=== PATIENT | male | born 1950 | race African-American/Black ===

== ENCOUNTER 2017-01-12 16:46 | Inpatient (IN) | payer MEDICARE, MEDICAID ==
[~2017-01-12] VITALS: Ht 175.3 cm; Wt 95.8 kg
[2017-01-12] MEDS ORDERED: AMLO2.5T45 PO (17:55)
[2017-01-12] MEDS ORDERED: LISI2.5T47 PO (17:55)
[2017-01-12 20:39] LABS: CLARITY URINE CLEAR (CLEAR); COLOR URINE YELLOW (YELLOW); GLUCOSE URINE NEGATIVE (NEGATIVE); KETONES URINE NEGATIVE (NEGATIVE); LEUKOCYTE ESTERASE URINE NEGATIVE (NEGATIVE); NITRITE URINE NEGATIVE (NEGATIVE); OCCULT BLOOD URINE 2+ (NEGATIVE); PROTEIN URINE NEGATIVE (NEGATIVE); SPECIFIC GRAVITY URINE 1.025 (1.005-1.030)
[2017-01-12 20:42] LABS: BASOPHILS % 0.5 % (0.0-2.0); EOSINOPHILS % 2.9 % (0.0-5.0); HEMATOCRIT. 33.6 % (42.0-52.0); HEMOGLOBIN. 11.3 g/dL (14.0-18.0); LYMPHOCYTES % 29.9 % (20.0-50.0); MEAN CORPUSCULAR HEMOGLOBIN 31.1 pg (28.0-32.0); MEAN CORPUSCULAR HGB CONC 33.6 g/dL (31.0-37.0); MEAN CORPUSCULAR VOLUME 92.6 fL (80.0-94.0); MEAN PLATELET VOLUME 7.3 fl (7.4-10.4); MONOCYTES % 12.1 % (2.0-8.0); NEUTROPHILS % 54.6 % (40.0-76.0); PLATELET 258 x1000/uL (130-400); RED BLOOD CELL COUNT 3.63 mill/uL (4.7-6.1); WHITE BLOOD COUNT 6.1 x1000/uL (4.5-11.0)
[2017-01-12 20:52] LABS: AMMONIA 40 uMol/L (<32)
[2017-01-12 20:55] LABS: *AMPHETAMINES SCREEN URINE NEGATIVE (NEGATIVE); *BARBITURATES SCREEN URINE NEGATIVE (NEGATIVE); *BENZODIAZEPINES SCREEN URINE NEGATIVE (NEGATIVE); *COCAINE SCREEN URINE NEGATIVE (NEGATIVE); CANNABINOID URINE SCREEN NEGATIVE (NEGATIVE); ECSTASY MDMA SCREEN URINE NEGATIVE (NEGATIVE); METHADONE URINE SCREEN NEGATIVE (NEGATIVE); OPIATES URINE SCREEN NEGATIVE (NEGATIVE); PHENCYCLIDINE URINE SCREEN NEGATIVE (NEGATIVE)
[2017-01-12 20:56] LABS: ALANINE AMINOTRANSFERASE 54 IU/L (13-61); ALBUMIN 3.8 g/dL (3.4-5.0); ANION GAP 13; CALCIUM 8.9 mg/dL (8.5-10.1); CARBON DIOXIDE 28 mEq/L (21-32); CHLORIDE 106 mEq/L (98-107); ETHANOL BLOOD < 10 mg/dL; INDEX HEMOLYSI 1 (1-3); INDEX ICTERIC 1 (1-4); INDEX LIPEMIC 1 (1-3); NT PRO B-TYPE NATRIURETIC PEP 79 pg/mL (5-125); TROPONIN I < 0.02 ng/mL (0.00-0.04); UREA NITROGEN BLOOD 22 mg/dL (7-21); eGFR 51 mL/min (>60)
[2017-01-12 20:59] LABS: BACTERIA URINE TRACE; RBC URINE 25-50 /hpf (0-2); SQUAMOUS EPITHELIAL CELL URINE RARE /lpf (RARE/1+); WBC URINE 0-2 /hpf (0-2)
[2017-01-12 21:03] LABS: THYROID STIMULATING HORMONE 0.67 uIU/mL (0.36-3.74)
[2017-01-12 21:05] LABS: CREATINE KINASE 1688 IU/L (39-308)
[2017-01-12] MEDS ORDERED: GUAIFENESIN 200MG/10ML SUGAR FREE UDC PO PRN (23:30)
[2017-01-12] MEDS ORDERED: ONDANSETRON HCL 4MG/2ML VIAL IV PRN (23:30)
[2017-01-12] MEDS ORDERED: MAGNESIUM/ALUMINUM HYDROXIDE/SIMETHICONE 30ML UDC PO PRN (23:30)
[2017-01-12] MEDS ORDERED: TRAMADOL 50MG TABLET PO PRN (23:30)
[2017-01-12] MEDS ORDERED: MORPHINE SULFATE 2 MG/ML CPJ (NOT FOR IM USE) IV PRN (23:30)
[2017-01-12] MEDS ORDERED: DOCUSATE SODIUM 100MG CAPSULE PO PRN (23:30)
[2017-01-12] MEDS ORDERED: ZOLPIDEM TARTRATE 5MG TABLET PO PRN (23:30)
[2017-01-12] MEDS ORDERED: IPRATROPIUM/ALBUTEROL 0.5-3(2.5)MG/3ML NEB INH PRN (23:30)
[2017-01-12] MEDS ORDERED: CLONIDINE 0.1MG TABLET PO PRN (23:30)
[2017-01-12] MEDS ORDERED: ASPIRIN 325MG EC TABLET PO ONE (23:30)
[2017-01-12] MEDS ORDERED: LORAZEPAM 2MG/ML CPJ IV PRN (23:30)
[2017-01-12] MEDS ORDERED: ACETAMINOPHEN 325MG TABLET PO PRN (23:30)
[2017-01-12] MEDS ORDERED: NITROGLYCERIN 0.4MG TABLET SL SL PRN (23:30)
[2017-01-12] MEDS ORDERED: DIPHENHYDRAMINE 50MG/ML VIAL IV PRN (23:30)
[2017-01-12] MEDS ORDERED: NA PHOS,M-B/NA PHOS,DI-BA ENEMA 118ML PR PRN (23:30)
[2017-01-13 02:05] VITALS: BP 125/79
[2017-01-13] MEDS ORDERED: NAPR-681 PO (03:20)
[2017-01-13] MEDS ORDERED: AMLO10TA80 PO (03:21)
[2017-01-13] MEDS ORDERED: LISI10TA5 PO (03:21)
[2017-01-13] MEDS ORDERED: ATOR10TA69 PO (03:22)
[2017-01-13] MEDS ORDERED: TERB250T11 PO (03:37)
[2017-01-13 04:00] VITALS: BP 123/84
[2017-01-13] MEDS: SODIUM CHLORIDE 0.9% 1,000 ML IV SCH ×2 (06:25→16:26)
[2017-01-13 06:57] LABS: CREATINE KINASE MB FRACTION 14.9 ng/mL (0.5-3.6); INDEX HEMOLYSI 1 (1-3)
[2017-01-13 07:12] LABS: CREATINE KINASE 1330 IU/L (39-308); TROPONIN I < 0.02 ng/mL (0.00-0.04)
[2017-01-13 08:00] VITALS: BP 126/76
[2017-01-13] MEDS: ASPIRIN 325MG EC TABLET PO SCH (09:47)
[2017-01-13] MEDS: ZINC SULFATE 220 MG ( 50 ) CAPSULE PO SCH (09:47)
[2017-01-13] MEDS: METOPROLOL TARTRATE 25MG TABLET PO SCH ×2 (09:48→20:23)
[2017-01-13] MEDS: ENOXAPARIN 40MG/0.4ML SYR SUBCUT SCH (09:49)
[2017-01-13] MEDS: PANTOPRAZOLE SODIUM 40 MG/VIAL IV SCH (09:58)
[2017-01-13 12:00] VITALS: BP 107/77
[2017-01-13 16:00] VITALS: BP 110/74
[2017-01-13 16:31] LABS: CREATINE KINASE MB FRACTION 12.2 ng/mL (0.5-3.6); INDEX HEMOLYSI 1 (1-3); INDEX ICTERIC 1 (1-4); INDEX LIPEMIC 1 (1-3); IRON 88 ug/dL (50-175); TOTAL IRON BINDING CAPACITY 265 ug/dL (250-450); TROPONIN I < 0.02 ng/mL (0.00-0.04)
[2017-01-13 16:35] LABS: CREATINE KINASE 1035 IU/L (39-308)
[2017-01-13 16:55] LABS: FOLIC ACID (FOLATE) SERUM 15.5 ng/mL (>5.38)
[2017-01-13 20:00] VITALS: BP 120/72
[2017-01-14] VITALS: BP 127/71
[2017-01-14 04:00] VITALS: BP 135/87
[2017-01-14] MEDS: SODIUM CHLORIDE 0.9% 1,000 ML IV SCH ×2 (06:24→21:39)
[2017-01-14 08:00] VITALS: BP 118/72
[2017-01-14] MEDS: METOPROLOL TARTRATE 25MG TABLET PO SCH ×2 (09:00→21:38)
[2017-01-14] MEDS: ZINC SULFATE 220 MG ( 50 ) CAPSULE PO SCH (09:15)
[2017-01-14] MEDS: ENOXAPARIN 40MG/0.4ML SYR SUBCUT SCH (09:15)
[2017-01-14] MEDS: ASPIRIN 325MG EC TABLET PO SCH (09:15)
[2017-01-14] MEDS: PANTOPRAZOLE SODIUM 40 MG/VIAL IV SCH (09:15)
[2017-01-14] MEDS ORDERED: MORPHINE SULFATE 2 MG/ML CPJ (NOT FOR IM USE) IV PRN (09:20)
[2017-01-14 12:00] VITALS: BP 110/65
[2017-01-14 12:38] LABS: T3 FREE 2.06 pg/ml (2.18-3.98); T4 FREE 0.88 ng/dL (0.76-1.46)
[2017-01-14 16:00] VITALS: BP 148/88
[2017-01-14 20:00] VITALS: BP 116/73
[2017-01-15] VITALS: BP 111/68
[2017-01-15 04:00] VITALS: BP 111/70
[2017-01-15 08:00] VITALS: BP 145/93
[2017-01-15] MEDS: SODIUM CHLORIDE 0.9% 1,000 ML IV SCH (08:26)
[2017-01-15 08:45] LABS: BASOPHILS % 0.6 % (0.0-2.0); EOSINOPHILS % 3.6 % (0.0-5.0); HEMATOCRIT. 32.8 % (42.0-52.0); HEMOGLOBIN. 10.9 g/dL (14.0-18.0); LYMPHOCYTES % 37.3 % (20.0-50.0); MEAN CORPUSCULAR HEMOGLOBIN 30.9 pg (28.0-32.0); MEAN CORPUSCULAR HGB CONC 33.1 g/dL (31.0-37.0); MEAN CORPUSCULAR VOLUME 93.4 fL (80.0-94.0); MEAN PLATELET VOLUME 7.6 fl (7.4-10.4); MONOCYTES % 10.6 % (2.0-8.0); NEUTROPHILS % 47.9 % (40.0-76.0); PLATELET 221 x1000/uL (130-400); RED BLOOD CELL COUNT 3.52 mill/uL (4.7-6.1); RED CELL DISTRIBUTION WIDTH 13.7 % (11.6-14.6); WHITE BLOOD COUNT 5.1 x1000/uL (4.5-11.0)
[2017-01-15] MEDS ORDERED: FAMOTIDINE 20MG TABLET PO SCH (09:00)
[2017-01-15] MEDS ORDERED: CLOPIDOGREL 75MG TABLET PO SCH (09:00)
[2017-01-15 09:12] LABS: ALANINE AMINOTRANSFERASE 35 IU/L (13-61); ANION GAP 11; CALCIUM 7.8 mg/dL (8.5-10.1); CARBON DIOXIDE 28 mEq/L (21-32); CHLORIDE 108 mEq/L (98-107); CREATINE KINASE 575 IU/L (39-308); INDEX HEMOLYSI 1 (1-3); INDEX ICTERIC 1 (1-4); INDEX LIPEMIC 1 (1-3); UREA NITROGEN BLOOD 12 mg/dL (7-21); eGFR > 60 mL/min (>60)
[2017-01-15] MEDS: ZINC SULFATE 220 MG ( 50 ) CAPSULE PO SCH (09:26)
[2017-01-15] MEDS: METOPROLOL TARTRATE 25MG TABLET PO SCH (09:27)
[2017-01-15] MEDS: ENOXAPARIN 40MG/0.4ML SYR SUBCUT SCH (09:28)
[2017-01-15 12:00] VITALS: BP 132/90
[2017-01-15 13:53] VITALS: BP 132/90
== END 2017-01-15 14:45 | disposition home or self-care (01) | DRG 683 ==
LOC: ER 17:51 → SUPCPDRO 23:23 → 6WST 23:25
PROVIDERS: ADMIT Internal Medicine; ATTEND Internal Medicine
DX: N17.0 Acute kidney failure with tubular necrosis (principal); M62.82 Rhabdomyolysis; E44.0 Moderate protein-calorie malnutrition; I69.354 Hemiplegia and hemiparesis following cerebral infarction affecting left non-dominant side; I10 Essential (primary) hypertension; D63.8 Anemia in other chronic diseases classified elsewhere; E78.00 Pure hypercholesterolemia, unspecified; R29.810 Facial weakness; R47.81 Slurred speech; M54.9 Dorsalgia, unspecified; R26.81 Unsteadiness on feet; Z79.899 Other long term (current) drug therapy; Z68.31 Body mass index [BMI] 31.0-31.9, adult
CPT/HCPCS: 36415; 70450; 70544; 70551; 71010; 80053; 80061; 80305; 81001; 82140; 82550; 82553; 82607; 82746; 83036; 83540; 83550; 83880; 84439; 84443; 84481; 84484; 85025; 92523; 93005; 93306; 93880; 93970; 97110; 97112; 97116; 97162; 97166; 99285; C9113; G0482; J1650; J7030

== ENCOUNTER 2017-06-08 18:13 | Inpatient (IN) | payer MEDICARE, MEDICAID ==
[~2017-06-08] VITALS: Ht 175.3 cm; Wt 85.7 kg
[~2017-06-08 18:13] MED LIST: AMLO10TA80 PO; ATOR10TA69 PO; LISI10TA5 PO; NAPR-681 PO; TERB250T11 PO
[2017-06-08 19:05] LABS: BASOPHILS % 0.4 % (0.0-2.0); EOSINOPHILS % 1.3 % (0.0-5.0); HEMOGLOBIN. 10.9 g/dL (14.0-18.0); LYMPHOCYTES % 28.6 % (20.0-50.0); MEAN CORPUSCULAR HEMOGLOBIN 30.5 pg (28.0-32.0); MEAN CORPUSCULAR VOLUME 89.6 fL (80.0-94.0); MONOCYTES % 10.6 % (2.0-8.0); NEUTROPHILS % 59.1 % (40.0-76.0); PLATELET 300 x1000/uL (130-400); RED BLOOD CELL COUNT 3.57 mill/uL (4.7-6.1); RED CELL DISTRIBUTION WIDTH 13.4 % (11.6-14.6)
[2017-06-08 19:12] LABS: PROTHROMBIN TIME 10.7 sec (9.4-11.6)
[2017-06-08 19:21] LABS: CARBON DIOXIDE 25 mEq/L (21-32); CHLORIDE 105 mEq/L (98-107); TROPONIN I < 0.02 ng/mL (0.00-0.04)
[2017-06-08] MEDS ORDERED: ASPIRIN 325MG EC TABLET PO ONE (19:45)
[2017-06-08] MEDS ORDERED: ONDANSETRON HCL 4MG/2ML VIAL IV PRN (21:00)
[2017-06-08] MEDS ORDERED: MAGNESIUM/ALUMINUM HYDROXIDE/SIMETHICONE 30ML UDC PO PRN (21:00)
[2017-06-08] MEDS ORDERED: ACETAMINOPHEN 325MG TABLET PO PRN (21:00)
[2017-06-08] MEDS ORDERED: CLONIDINE 0.1MG TABLET PO PRN (21:00)
[2017-06-08] MEDS ORDERED: IPRATROPIUM/ALBUTEROL 0.5-3(2.5)MG/3ML NEB INH PRN (21:00)
[2017-06-08] MEDS ORDERED: DOCUSATE SODIUM 100MG CAPSULE PO PRN (21:00)
[2017-06-08 22:50] LABS: CARBON DIOXIDE 29 mEq/L (21-32); CHLORIDE 104 mEq/L (98-107)
[2017-06-08 22:52] LABS: CREATINE KINASE 714 IU/L (39-308); CREATINE KINASE MB FRACTION 8.4 ng/mL (0.5-3.6); TROPONIN I < 0.02 ng/mL (0.00-0.04)
[2017-06-08 23:00] VITALS: BP 139/76
[2017-06-09] VITALS: BP 139/76
[2017-06-09] MEDS ORDERED: ENOXAPARIN 40MG/0.4ML SYR SUBCUT SCH (01:00)
[2017-06-09 03:27] LABS: *AMPHETAMINES SCREEN URINE NEGATIVE (NEGATIVE); *BARBITURATES SCREEN URINE NEGATIVE (NEGATIVE); *BENZODIAZEPINES SCREEN URINE NEGATIVE (NEGATIVE); *COCAINE SCREEN URINE NEGATIVE (NEGATIVE); CANNABINOID URINE SCREEN NEGATIVE (NEGATIVE); METHADONE URINE SCREEN NEGATIVE (NEGATIVE); OPIATES URINE SCREEN NEGATIVE (NEGATIVE); PHENCYCLIDINE URINE SCREEN NEGATIVE (NEGATIVE)
[2017-06-09 04:00] VITALS: BP 116/72
[2017-06-09 06:45] LABS: BASOPHILS % 0.6 % (0.0-2.0); EOSINOPHILS % 2.7 % (0.0-5.0); HEMATOCRIT. 31.9 % (42.0-52.0); HEMOGLOBIN. 10.9 g/dL (14.0-18.0); LYMPHOCYTES % 39.5 % (20.0-50.0); MEAN CORPUSCULAR HEMOGLOBIN 30.6 pg (28.0-32.0); MEAN CORPUSCULAR VOLUME 89.6 fL (80.0-94.0); MEAN PLATELET VOLUME 7.7 fl (7.4-10.4); NEUTROPHILS % 47.2 % (40.0-76.0); PLATELET 296 x1000/uL (130-400); RED BLOOD CELL COUNT 3.56 mill/uL (4.7-6.1); RED CELL DISTRIBUTION WIDTH 13.3 % (11.6-14.6)
[2017-06-09 07:36] LABS: LDL CHOLESTEROL 61 mg/dL (5-100)
[2017-06-09 07:43] LABS: CREATINE KINASE 744 IU/L (39-308); HDL CHOLESTEROL 48 mg/dL (40-59); TROPONIN I < 0.02 ng/mL (0.00-0.04)
[2017-06-09 08:08] VITALS: BP 126/88
[2017-06-09 08:36] LABS: ETHANOL BLOOD < 10 mg/dL; T4 FREE 1.24 ng/dL (0.76-1.46)
[2017-06-09 09:00] LABS: FOLIC ACID (FOLATE) SERUM 13.2 ng/mL (>5.38)
[2017-06-09] MEDS: CLOPIDOGREL 75MG TABLET PO SCH (09:00)
[2017-06-09] MEDS: AMLODIPINE 10MG TABLET PO SCH (09:00)
[2017-06-09] MEDS: LISINOPRIL 10MG TABLET PO SCH (09:00)
[2017-06-09] MEDS: ENOXAPARIN 40MG/0.4ML SYR SUBCUT SCH (09:01)
[2017-06-09 12:05] VITALS: BP 126/60
[2017-06-09] MEDS ORDERED: ASPI-1159 PO (13:27)
[2017-06-09 16:12] VITALS: BP 107/61
[2017-06-09 20:00] VITALS: BP 114/68
[2017-06-09] MEDS: ATORVASTATIN CALCIUM 10MG TABLET PO SCH (21:41)
[2017-06-10] VITALS: BP 130/68
[2017-06-10 04:00] VITALS: BP 124/79
[2017-06-10 08:00] VITALS: BP 137/80
[2017-06-10] MEDS: LISINOPRIL 10MG TABLET PO SCH (09:14)
[2017-06-10] MEDS: CLOPIDOGREL 75MG TABLET PO SCH (09:14)
[2017-06-10] MEDS: AMLODIPINE 10MG TABLET PO SCH (09:14)
[2017-06-10] MEDS: ENOXAPARIN 40MG/0.4ML SYR SUBCUT SCH (09:15)
[2017-06-10 12:00] VITALS: BP 110/55
[2017-06-10 16:00] VITALS: BP 119/75
[2017-06-10 20:00] VITALS: BP 139/79
[2017-06-10] MEDS: ATORVASTATIN CALCIUM 10MG TABLET PO SCH (20:37)
[2017-06-11] VITALS: BP 126/82
[2017-06-11 04:00] VITALS: BP 129/81
[2017-06-11 08:00] VITALS: BP 138/96
[2017-06-11] MEDS: CLOPIDOGREL 75MG TABLET PO SCH (08:48)
[2017-06-11] MEDS: LISINOPRIL 10MG TABLET PO SCH (08:48)
[2017-06-11] MEDS: AMLODIPINE 10MG TABLET PO SCH (08:49)
[2017-06-11] MEDS: ENOXAPARIN 40MG/0.4ML SYR SUBCUT SCH (09:38)
[2017-06-11 12:00] VITALS: BP 119/62
[2017-06-11 16:00] VITALS: BP 105/79
[2017-06-11 16:55] VITALS: BP 105/79
== END 2017-06-11 17:05 | DRG 65 ==
LOC: EDBEDREQ 20:08 → ER 21:14 → 7WST 21:15 → ENRESERV 21:56 → 7WST 06-11 06:58
PROVIDERS: ADMIT Internal Medicine; ATTEND Internal Medicine
DX: I63.9 Cerebral infarction, unspecified (principal); M62.82 Rhabdomyolysis; G91.2 (Idiopathic) normal pressure hydrocephalus; G93.89 Other specified disorders of brain; G81.94 Hemiplegia, unspecified affecting left nondominant side; I10 Essential (primary) hypertension; D64.9 Anemia, unspecified; B35.1 Tinea unguium; E78.00 Pure hypercholesterolemia, unspecified; L60.0 Ingrowing nail; L60.3 Nail dystrophy; Z79.82 Long term (current) use of aspirin; Z79.899 Other long term (current) drug therapy; Z91.19 Patient's noncompliance with other medical treatment and regimen
CPT/HCPCS: 36415; 70450; 70544; 70553; 71010; 80048; 80053; 80061; 80305; 82550; 82553; 82607; 82746; 82962; 83036; 83880; 84439; 84443; 84481; 84484; 85025; 85610; 92523; 92610; 93005; 93306; 93880; 97112; 97116; 97162; 97166; 99285; G0482; J1650

== ENCOUNTER 2017-06-11 17:13 | Inpatient (IN) | payer MEDICARE, MEDICAID ==
[~2017-06-11] VITALS: Ht 175.3 cm; Wt 82.6 kg
[~2017-06-11 17:13] MED LIST changes: +ASPI-1159 PO
[2017-06-11 20:00] VITALS: BP 128/87
[2017-06-11] MEDS ORDERED: MAGNESIUM/ALUMINUM HYDROXIDE/SIMETHICONE 30ML UDC PO PRN (21:15)
[2017-06-11] MEDS ORDERED: IPRATROPIUM/ALBUTEROL 0.5-3(2.5)MG/3ML NEB HHN PRN (21:15)
[2017-06-11] MEDS ORDERED: ACETAMINOPHEN 325MG TABLET PO PRN (21:15)
[2017-06-11] MEDS ORDERED: DOCUSATE SODIUM 100MG CAPSULE PO PRN (21:15)
[2017-06-11] MEDS ORDERED: CLONIDINE 0.1MG TABLET PO PRN (21:15)
[2017-06-11] MEDS ORDERED: ONDANSETRON HCL 4MG TABLET PO PRN (21:15)
[2017-06-11] MEDS: ATORVASTATIN CALCIUM 10MG TABLET PO SCH (21:52)
[2017-06-11] MEDS ORDERED: ATORVASTATIN CALCIUM 10MG TABLET PO SCH (22:00)
[2017-06-11 22:34] VITALS: BP 128/87
[2017-06-12 06:12] LABS: CARBON DIOXIDE 27 mEq/L (21-32); CHLORIDE 105 mEq/L (98-107); CREATINE KINASE 350 IU/L (39-308)
[2017-06-12 06:16] LABS: BASOPHILS % 0.3 % (0.0-2.0); EOSINOPHILS % 2.7 % (0.0-5.0); HEMATOCRIT. 32.3 % (42.0-52.0); HEMOGLOBIN. 10.9 g/dL (14.0-18.0); LYMPHOCYTES % 38.8 % (20.0-50.0); MEAN CORPUSCULAR HEMOGLOBIN 30.3 pg (28.0-32.0); MEAN CORPUSCULAR VOLUME 89.9 fL (80.0-94.0); MEAN PLATELET VOLUME 7.4 fl (7.4-10.4); MONOCYTES % 11.2 % (2.0-8.0); PLATELET 299 x1000/uL (130-400); RED CELL DISTRIBUTION WIDTH 13.2 % (11.6-14.6)
[2017-06-12 08:00] VITALS: BP 123/72
[2017-06-12] MEDS: CLOPIDOGREL 75MG TABLET PO SCH (08:50)
[2017-06-12] MEDS ORDERED: ENOXAPARIN 40MG/0.4ML SYR SUBCUT SCH (09:00)
[2017-06-12] MEDS: AMLODIPINE 10MG TABLET PO SCH (09:52)
[2017-06-12] MEDS: LISINOPRIL 10MG TABLET PO SCH (09:53)
[2017-06-12 20:00] VITALS: BP 129/65
[2017-06-12] MEDS: ATORVASTATIN CALCIUM 10MG TABLET PO SCH (20:39)
[2017-06-12] MEDS: ENOXAPARIN 40MG/0.4ML SYR SUBCUT SCH (20:40)
[2017-06-13 08:00] VITALS: BP 125/80
[2017-06-13] MEDS: AMLODIPINE 10MG TABLET PO SCH (08:19)
[2017-06-13] MEDS: LISINOPRIL 10MG TABLET PO SCH (08:19)
[2017-06-13] MEDS: ENOXAPARIN 40MG/0.4ML SYR SUBCUT SCH (08:19)
[2017-06-13] MEDS: CLOPIDOGREL 75MG TABLET PO SCH (08:20)
[2017-06-13 20:00] VITALS: BP 119/58
[2017-06-13] MEDS: ATORVASTATIN CALCIUM 10MG TABLET PO SCH (21:06)
[2017-06-14 08:00] VITALS: BP 125/86
[2017-06-14] MEDS: AMLODIPINE 10MG TABLET PO SCH (08:09)
[2017-06-14] MEDS: LISINOPRIL 10MG TABLET PO SCH (08:10)
[2017-06-14] MEDS: ENOXAPARIN 40MG/0.4ML SYR SUBCUT SCH (08:10)
[2017-06-14] MEDS ORDERED: CLOPIDOGREL 75MG TABLET PO SCH (09:00)
[2017-06-14 20:00] VITALS: BP 118/72
[2017-06-14] MEDS: ATORVASTATIN CALCIUM 10MG TABLET PO SCH (20:39)
[2017-06-15 07:10] VITALS: BP 137/93
[2017-06-15] MEDS: LISINOPRIL 10MG TABLET PO SCH (08:23)
[2017-06-15] MEDS: AMLODIPINE 10MG TABLET PO SCH (08:24)
[2017-06-15] MEDS: ENOXAPARIN 40MG/0.4ML SYR SUBCUT SCH (08:24)
[2017-06-15 20:55] VITALS: BP 119/75
[2017-06-15] MEDS: ATORVASTATIN CALCIUM 10MG TABLET PO SCH (22:11)
[2017-06-16 08:00] VITALS: BP 132/83
[2017-06-16] MEDS: AMLODIPINE 10MG TABLET PO SCH (08:01)
[2017-06-16] MEDS: LISINOPRIL 10MG TABLET PO SCH (08:01)
[2017-06-16] MEDS: ENOXAPARIN 40MG/0.4ML SYR SUBCUT SCH (08:04)
[2017-06-16] MEDS: CLOPIDOGREL 75MG TABLET PO SCH (12:23)
[2017-06-16 20:00] VITALS: BP 116/66
[2017-06-16] MEDS: ATORVASTATIN CALCIUM 10MG TABLET PO SCH (21:55)
[2017-06-17 08:00] VITALS: BP 125/77
[2017-06-17] MEDS: ENOXAPARIN 40MG/0.4ML SYR SUBCUT SCH (09:48)
[2017-06-17] MEDS: CLOPIDOGREL 75MG TABLET PO SCH (09:48)
[2017-06-17] MEDS: AMLODIPINE 10MG TABLET PO SCH (09:49)
[2017-06-17] MEDS: LISINOPRIL 10MG TABLET PO SCH (09:49)
[2017-06-17] MEDS ORDERED: ATOR10TA PO (12:46)
[2017-06-17] MEDS ORDERED: CLOP75TA16 PO (12:46)
[2017-06-17] MEDS ORDERED: AMLO10TA80 PO (12:46)
[2017-06-17] MEDS ORDERED: LISI10TA5 PO (12:46)
[2017-06-17 13:01] VITALS: BP 125/77
== END 2017-06-17 14:45 | disposition home health service (06) | DRG 65 ==
PROVIDERS: ADMIT Psychiatry & Neurology Neurology; ATTEND Internal Medicine
DX: I63.9 Cerebral infarction, unspecified (principal); G81.94 Hemiplegia, unspecified affecting left nondominant side; M62.82 Rhabdomyolysis; G93.89 Other specified disorders of brain; I10 Essential (primary) hypertension; E78.00 Pure hypercholesterolemia, unspecified; D64.9 Anemia, unspecified; E78.5 Hyperlipidemia, unspecified; R26.89 Other abnormalities of gait and mobility; Z79.899 Other long term (current) drug therapy; Z79.82 Long term (current) use of aspirin; Z91.19 Patient's noncompliance with other medical treatment and regimen; I69.30 Unspecified sequelae of cerebral infarction
CPT/HCPCS: 36415; 80053; 82550; 85025; 97110; 97112; 97116; 97163; 97166; 97530; 97535; J1650

== ENCOUNTER 2018-05-14 03:28 | Inpatient (IN) | payer MEDICARE, MEDICAID ==
[~2018-05-14] VITALS: Ht 175.3 cm; Wt 74.4 kg
[~2018-05-14 03:28] MED LIST changes: -ASPI-1159 PO; +ATOR10TA PO; +CLOP75TA16 PO; -NAPR-681 PO; -TERB250T11 PO
[2018-05-14 04:42] LABS: BASOPHILS % 0.5 % (0.0-2.0); EOSINOPHILS % 2.9 % (0.0-5.0); HEMATOCRIT. 34.9 % (42.0-52.0); HEMOGLOBIN. 11.8 g/dL (14.0-18.0); LYMPHOCYTES % 31.5 % (20.0-50.0); MEAN CORPUSCULAR HEMOGLOBIN 31.3 pg (28.0-32.0); MEAN CORPUSCULAR VOLUME 92.7 fL (80.0-94.0); MEAN PLATELET VOLUME 7.6 fl (7.4-10.4); MONOCYTES % 9.6 % (2.0-8.0); NEUTROPHILS % 55.5 % (40.0-76.0); PLATELET 248 x1000/uL (130-400); RED BLOOD CELL COUNT 3.76 mill/uL (4.7-6.1); RED CELL DISTRIBUTION WIDTH 13.9 % (11.6-14.6)
[2018-05-14 04:50] LABS: CHLORIDE 103 mEq/L (98-107)
[2018-05-14 04:52] LABS: PROTHROMBIN TIME 10.8 sec (9.4-11.6)
[2018-05-14 04:54] LABS: ETHANOL BLOOD < 10 mg/dL
[2018-05-14] MEDS ORDERED: POTASSIUM CHLORIDE 20MEQ TABLET SR PO ONE (06:45)
[2018-05-14 07:17] LABS: CLARITY URINE CLEAR (CLEAR); COLOR URINE YELLOW (YELLOW); KETONES URINE TRACE (NEGATIVE); LEUKOCYTE ESTERASE URINE 1+ (NEGATIVE); NITRITE URINE NEGATIVE (NEGATIVE); OCCULT BLOOD URINE NEGATIVE (NEGATIVE); PH URINE 6.5 (4.5-8.0); PROTEIN URINE TRACE (NEGATIVE); SPECIFIC GRAVITY URINE 1.013 (1.005-1.030)
[2018-05-14 07:45] LABS: *COCAINE SCREEN URINE NEGATIVE (NEGATIVE); CANNABINOID URINE SCREEN NEGATIVE (NEGATIVE); METHADONE URINE SCREEN NEGATIVE (NEGATIVE); OPIATES URINE SCREEN NEGATIVE (NEGATIVE); PHENCYCLIDINE URINE SCREEN NEGATIVE (NEGATIVE)
[2018-05-14 07:46] LABS: *AMPHETAMINES SCREEN URINE NEGATIVE (NEGATIVE); *BARBITURATES SCREEN URINE NEGATIVE (NEGATIVE); *BENZODIAZEPINES SCREEN URINE NEGATIVE (NEGATIVE)
[2018-05-14 08:20] VITALS: BP_SYST 151; BP_SYST 154; BP_DIAS 79; BP_DIAS 90; BP_DIAS 94
[2018-05-14] MEDS ORDERED: ONDANSETRON HCL 4MG/2ML VIAL IV PRN (08:45)
[2018-05-14] MEDS ORDERED: CLONIDINE 0.1MG TABLET PO PRN (08:45)
[2018-05-14] MEDS: ENOXAPARIN 40MG/0.4ML SYR SUBCUT SCH (09:36)
[2018-05-14] MEDS: CLOPIDOGREL 75MG TABLET PO SCH (09:36)
[2018-05-14] MEDS: AMLODIPINE 10MG TABLET PO SCH (09:36)
[2018-05-14] MEDS: LISINOPRIL 10MG TABLET PO SCH (09:36)
[2018-05-14] MEDS: SODIUM CHLORIDE 0.45% 1,000 ML IV SCH (10:28)
[2018-05-14] MEDS: LEVOFLOXACIN 500MG PREMIX 100 ML IV SCH (11:49)
[2018-05-14 11:53] VITALS: BP 127/73
[2018-05-14 12:03] LABS: T4 FREE 1.11 ng/dL (0.76-1.46)
[2018-05-14] MEDS ORDERED: HYDRALAZINE 20MG/ML VIAL IV PRN (13:30)
[2018-05-14 16:00] VITALS: BP 97/61
[2018-05-14] MEDS: ACETAMINOPHEN 325MG TABLET PO PRN ×2 (16:44→23:18)
[2018-05-14 17:00] LABS: CREATINE KINASE 642 IU/L (39-308)
[2018-05-14 17:01] LABS: CREATINE KINASE MB FRACTION 10.4 ng/mL (0.5-3.6)
[2018-05-14] MEDS: THEOPHYLLINE ANHYDROUS 80 MG/15 ML 120ML PO SCH (18:50)
[2018-05-14 20:00] VITALS: BP_SYST 105; BP_SYST 117; BP_SYST 118; BP_DIAS 67; BP_DIAS 69; BP_DIAS 70
[2018-05-14] MEDS: ATORVASTATIN CALCIUM 10MG TABLET PO SCH (20:24)
[2018-05-15] VITALS: BP 119/64
[2018-05-15 01:17] LABS: CREATINE KINASE 544 IU/L (39-308)
[2018-05-15 01:18] LABS: CREATINE KINASE MB FRACTION 8.4 ng/mL (0.5-3.6)
[2018-05-15] MEDS: THEOPHYLLINE ANHYDROUS 80 MG/15 ML 120ML PO SCH ×4 (02:38→18:08)
[2018-05-15] MEDS: SODIUM CHLORIDE 0.45% 1,000 ML IV SCH ×2 (02:43→20:26)
[2018-05-15 04:00] VITALS: BP 120/62
[2018-05-15 05:57] LABS: BASOPHILS % 0.7 % (0.0-2.0); HEMATOCRIT. 33.8 % (42.0-52.0); HEMOGLOBIN. 11.6 g/dL (14.0-18.0); LYMPHOCYTES % 38.6 % (20.0-50.0); MEAN CORPUSCULAR HEMOGLOBIN 31.5 pg (28.0-32.0); MEAN CORPUSCULAR VOLUME 91.6 fL (80.0-94.0); MEAN PLATELET VOLUME 8.2 fl (7.4-10.4); MONOCYTES % 9.7 % (2.0-8.0); PLATELET 241 x1000/uL (130-400); RED BLOOD CELL COUNT 3.68 mill/uL (4.7-6.1); RED CELL DISTRIBUTION WIDTH 13.5 % (11.6-14.6)
[2018-05-15 06:40] LABS: CHLORIDE 103 mEq/L (98-107)
[2018-05-15 08:00] VITALS: BP_SYST 128; BP_SYST 136; BP_SYST 153; BP_DIAS 70; BP_DIAS 76; BP_DIAS 96
[2018-05-15] MEDS ORDERED: POTASSIUM CHLORIDE 20MEQ/PACKET PO NR (08:00)
[2018-05-15] MEDS: AMLODIPINE 10MG TABLET PO SCH (09:37)
[2018-05-15] MEDS: CLOPIDOGREL 75MG TABLET PO SCH (09:37)
[2018-05-15] MEDS: ENOXAPARIN 40MG/0.4ML SYR SUBCUT SCH (09:37)
[2018-05-15] MEDS: LISINOPRIL 10MG TABLET PO SCH (09:46)
[2018-05-15] MEDS: LEVOFLOXACIN 500MG PREMIX 100 ML IV SCH (11:29)
[2018-05-15] MEDS: ACETAMINOPHEN 325MG TABLET PO PRN ×2 (11:32→20:25)
[2018-05-15 12:00] VITALS: BP 117/74
[2018-05-15] MEDS ORDERED: POTASSIUM CHLORIDE 20MEQ TABLET SR PO ONE (12:45)
[2018-05-15 16:00] VITALS: BP 116/63
[2018-05-15 19:40] VITALS: BP_SYST 125; BP_SYST 127; BP_SYST 130; BP_DIAS 70; BP_DIAS 74; BP_DIAS 81
[2018-05-15] MEDS: ATORVASTATIN CALCIUM 10MG TABLET PO SCH (20:25)
[2018-05-16] VITALS (8 sets, daily range): BP systolic 125–146; BP diastolic 68–96
[2018-05-16] MEDS: THEOPHYLLINE ANHYDROUS 80 MG/15 ML 120ML PO SCH ×4 (00:24→17:21)
[2018-05-16] MEDS: ACETAMINOPHEN 325MG TABLET PO PRN ×2 (06:16→23:28)
[2018-05-16 07:19] LABS: BASOPHILS % 0.5 % (0.0-2.0); EOSINOPHILS % 3.7 % (0.0-5.0); HEMATOCRIT. 34.2 % (42.0-52.0); HEMOGLOBIN. 11.6 g/dL (14.0-18.0); LYMPHOCYTES % 36.6 % (20.0-50.0); MEAN CORPUSCULAR HEMOGLOBIN 31.4 pg (28.0-32.0); MEAN CORPUSCULAR VOLUME 92.2 fL (80.0-94.0); MONOCYTES % 10.6 % (2.0-8.0); NEUTROPHILS % 48.6 % (40.0-76.0); PLATELET 245 x1000/uL (130-400); RED BLOOD CELL COUNT 3.71 mill/uL (4.7-6.1); RED CELL DISTRIBUTION WIDTH 13.7 % (11.6-14.6)
[2018-05-16 07:29] LABS: CHLORIDE 104 mEq/L (98-107)
[2018-05-16] MEDS ORDERED: POTASSIUM CHLORIDE 20MEQ TABLET SR PO NR (09:00)
[2018-05-16] MEDS: LISINOPRIL 10MG TABLET PO SCH (09:19)
[2018-05-16] MEDS: CLOPIDOGREL 75MG TABLET PO SCH (09:19)
[2018-05-16] MEDS: AMLODIPINE 10MG TABLET PO SCH (09:19)
[2018-05-16] MEDS: ENOXAPARIN 40MG/0.4ML SYR SUBCUT SCH (09:20)
[2018-05-16] MEDS: LEVOFLOXACIN 500MG PREMIX 100 ML IV SCH (11:28)
[2018-05-16] MEDS: SODIUM CHLORIDE 0.45% 1,000 ML IV SCH (15:20)
[2018-05-16] MEDS: ATORVASTATIN CALCIUM 10MG TABLET PO SCH (21:18)
[2018-05-17] VITALS: BP 128/80
[2018-05-17] MEDS: THEOPHYLLINE ANHYDROUS 80 MG/15 ML 120ML PO SCH ×4 (00:54→17:05)
[2018-05-17 04:00] VITALS: BP_SYST 132; BP_SYST 134; BP_SYST 138; BP_DIAS 71; BP_DIAS 74; BP_DIAS 76
[2018-05-17] MEDS: LISINOPRIL 10MG TABLET PO SCH (08:51)
[2018-05-17] MEDS: AMLODIPINE 10MG TABLET PO SCH (08:52)
[2018-05-17] MEDS: CLOPIDOGREL 75MG TABLET PO SCH (08:52)
[2018-05-17] MEDS: ENOXAPARIN 40MG/0.4ML SYR SUBCUT SCH (08:56)
[2018-05-17] MEDS: LEVOFLOXACIN 500MG TABLET PO SCH (11:44)
[2018-05-17] MEDS: ACETAMINOPHEN 325MG TABLET PO PRN (17:05)
[2018-05-17 20:00] VITALS: BP_SYST 129; BP_SYST 131; BP_SYST 133; BP_DIAS 70; BP_DIAS 72; BP_DIAS 74
[2018-05-17] MEDS: ATORVASTATIN CALCIUM 10MG TABLET PO SCH (21:44)
[2018-05-18] VITALS: BP_SYST 129; BP_SYST 132; BP_SYST 133; BP_DIAS 69; BP_DIAS 70
[2018-05-18] MEDS: THEOPHYLLINE ANHYDROUS 80 MG/15 ML 120ML PO SCH ×4 (00:35→18:25)
[2018-05-18 04:00] VITALS: BP 128/71
[2018-05-18 07:52] LABS: HEMATOCRIT 35.5 % (42.0-52.0); MEAN CORPUSCULAR VOLUME 91.9 fL (80.0-94.0); PLATELET 265 x1000/uL (130-400); RED BLOOD CELL COUNT 3.87 mill/uL (4.7-6.1); RED CELL DISTRIBUTION WIDTH 13.9 % (11.6-14.6)
[2018-05-18 08:04] LABS: CHLORIDE 102 mEq/L (98-107)
[2018-05-18] MEDS: AMLODIPINE 10MG TABLET PO SCH (09:00)
[2018-05-18] MEDS: LISINOPRIL 10MG TABLET PO SCH (09:00)
[2018-05-18] MEDS: LEVOFLOXACIN 500MG TABLET PO SCH (12:17)
[2018-05-18] MEDS: ENOXAPARIN 40MG/0.4ML SYR SUBCUT SCH (12:17)
[2018-05-18] MEDS: CLOPIDOGREL 75MG TABLET PO SCH (12:17)
[2018-05-18 16:00] VITALS: BP 128/71
[2018-05-18 20:34] VITALS: BP 138/66
[2018-05-18 20:35] VITALS: BP_SYST 133; BP_SYST 135; BP_DIAS 79; BP_DIAS 91
[2018-05-18] MEDS: ATORVASTATIN CALCIUM 10MG TABLET PO SCH (21:47)
[2018-05-19 00:13] VITALS: BP 139/86
[2018-05-19] MEDS: THEOPHYLLINE ANHYDROUS 80 MG/15 ML 120ML PO SCH ×3 (01:06→12:14)
[2018-05-19 04:15] VITALS: BP 143/90
[2018-05-19 08:00] VITALS: BP 126/82
[2018-05-19] MEDS: CLOPIDOGREL 75MG TABLET PO SCH (09:20)
[2018-05-19] MEDS: AMLODIPINE 10MG TABLET PO SCH (09:21)
[2018-05-19] MEDS: LISINOPRIL 10MG TABLET PO SCH (09:21)
[2018-05-19] MEDS: ENOXAPARIN 40MG/0.4ML SYR SUBCUT SCH (09:21)
[2018-05-19 12:00] VITALS: BP 128/77
[2018-05-19] MEDS: LEVOFLOXACIN 500MG TABLET PO SCH (12:13)
[2018-05-19 14:50] VITALS: BP 128/77
== END 2018-05-19 16:25 | disposition home or self-care (01) | DRG 73 ==
LOC: ER 03:28 → 5WST 06:33 → OBSVTOIN 06:33 → INTOOBSV 06:33 → ENRESERV 07:24
PROVIDERS: ADMIT Internal Medicine; ATTEND Internal Medicine
DX: G90.8 Other disorders of autonomic nervous system (principal); I50.33 Acute on chronic diastolic (congestive) heart failure; N39.0 Urinary tract infection, site not specified; D68.59 Other primary thrombophilia; I69.354 Hemiplegia and hemiparesis following cerebral infarction affecting left non-dominant side; E87.6 Hypokalemia; R00.1 Bradycardia, unspecified; D64.9 Anemia, unspecified; E78.5 Hyperlipidemia, unspecified; J06.9 Acute upper respiratory infection, unspecified; E78.00 Pure hypercholesterolemia, unspecified; I11.0 Hypertensive heart disease with heart failure; I25.10 Atherosclerotic heart disease of native coronary artery without angina pectoris; R31.9 Hematuria, unspecified; B95.4 Other streptococcus as the cause of diseases classified elsewhere; K57.90 Diverticulosis of intestine, part unspecified, without perforation or abscess without bleeding; M19.90 Unspecified osteoarthritis, unspecified site; I25.2 Old myocardial infarction; Z59.0 Homelessness; Z79.899 Other long term (current) drug therapy; Z87.442 Personal history of urinary calculi
CPT/HCPCS: 36415; 70450; 70551; 71045; 80048; 80053; 80305; 81003; 82550; 82553; 83735; 84153; 84439; 84443; 84484; 85025; 85027; 85610; 87077; 87086; 87186; 93005; 93306; 93880; 97116; 97162; 97530; G0482; J1650; J1956; G0103

== ENCOUNTER 2018-07-17 18:10 | Inpatient (IN) | payer MEDICARE, MEDICAID ==
[~2018-07-17] VITALS: Ht 175.3 cm; Wt 78.5 kg
[~2018-07-17 18:10] MED LIST changes: -ATOR10TA69 PO
[2018-07-17] MEDS ORDERED: SODIUM CHLORIDE 0.9% 1,000 ML IV ONE (18:32)
[2018-07-17 19:10] LABS: BASOPHILS % 0.9 % (0.0-2.0); HEMOGLOBIN. 11.3 g/dL (14.0-18.0); MEAN CORPUSCULAR VOLUME 93.4 fL (80.0-94.0); MEAN PLATELET VOLUME 8.3 fl (7.4-10.4); MONOCYTES % 12.8 % (2.0-8.0); NEUTROPHILS % 53.3 % (40.0-76.0); PLATELET 216 x1000/uL (130-400); RED BLOOD CELL COUNT 3.54 mill/uL (4.7-6.1); RED CELL DISTRIBUTION WIDTH 13.9 % (11.6-14.6)
[2018-07-17 19:17] LABS: CHLORIDE 106 mEq/L (98-107)
[2018-07-17] MEDS ORDERED: POTASSIUM CHLORIDE 20MEQ TABLET SR PO ONE (20:00)
[2018-07-17] MEDS ORDERED: ASPIRIN 81MG TABLET PO ONE (20:00)
[2018-07-17 21:14] LABS: CLARITY URINE CLEAR (CLEAR); COLOR URINE YELLOW (YELLOW); KETONES URINE NEGATIVE (NEGATIVE); LEUKOCYTE ESTERASE URINE TRACE (NEGATIVE); NITRITE URINE NEGATIVE (NEGATIVE); OCCULT BLOOD URINE NEGATIVE (NEGATIVE); PROTEIN URINE TRACE (NEGATIVE)
[2018-07-18] VITALS (7 sets, daily range): BP systolic 102–160; BP diastolic 59–106
[2018-07-18 07:04] LABS: BASOPHILS % 0.8 % (0.0-2.0); EOSINOPHILS % 5.2 % (0.0-5.0); HEMATOCRIT. 34.2 % (42.0-52.0); HEMOGLOBIN. 11.7 g/dL (14.0-18.0); LYMPHOCYTES % 32.1 % (20.0-50.0); MEAN CORPUSCULAR HEMOGLOBIN 31.8 pg (28.0-32.0); MEAN CORPUSCULAR VOLUME 92.8 fL (80.0-94.0); MEAN PLATELET VOLUME 8.2 fl (7.4-10.4); MONOCYTES % 12.5 % (2.0-8.0); NEUTROPHILS % 49.4 % (40.0-76.0); PLATELET 225 x1000/uL (130-400); RED BLOOD CELL COUNT 3.68 mill/uL (4.7-6.1); RED CELL DISTRIBUTION WIDTH 13.9 % (11.6-14.6)
[2018-07-18 07:08] LABS: CHLORIDE 109 mEq/L (98-107)
[2018-07-18 07:32] LABS: LDL CHOLESTEROL 44 mg/dL (5-100)
[2018-07-18 07:33] LABS: HDL CHOLESTEROL 60 mg/dL (40-59)
[2018-07-18] MEDS: LISINOPRIL 10MG TABLET PO SCH (08:43)
[2018-07-18] MEDS: CLOPIDOGREL 75MG TABLET PO SCH (08:43)
[2018-07-18] MEDS: HEPARIN 5000 UNITS/ML VIAL SUBCUT SCH ×2 (08:44→20:39)
[2018-07-18] MEDS ORDERED: MEDICATION NOT ON FORMULARY EA (Clopidogrel Bisulfate (Plavix) 75 MG) PO SCH (09:00)
[2018-07-18] MEDS ORDERED: MEDICATION NOT ON FORMULARY EA (Lisinopril 10 MG) PO SCH (09:00)
[2018-07-18] MEDS: ACETAMINOPHEN 325MG TABLET PO PRN ×2 (10:05→20:38)
[2018-07-18] MEDS ORDERED: POTASSIUM CHLORIDE 20MEQ TABLET SR PO NR (16:15)
[2018-07-18] MEDS: ATORVASTATIN CALCIUM 10MG TABLET PO SCH (20:39)
[2018-07-18 22:07] LABS: *AMPHETAMINES SCREEN URINE NEGATIVE (NEGATIVE); *BARBITURATES SCREEN URINE NEGATIVE (NEGATIVE); *BENZODIAZEPINES SCREEN URINE NEGATIVE (NEGATIVE); *COCAINE SCREEN URINE NEGATIVE (NEGATIVE); METHADONE URINE SCREEN NEGATIVE (NEGATIVE); OPIATES URINE SCREEN NEGATIVE (NEGATIVE)
[2018-07-18 22:08] LABS: CANNABINOID URINE SCREEN NEGATIVE (NEGATIVE); PHENCYCLIDINE URINE SCREEN NEGATIVE (NEGATIVE)
[2018-07-19] VITALS (7 sets, daily range): BP systolic 125–148; BP diastolic 64–98
[2018-07-19 07:04] LABS: CHLORIDE 107 mEq/L (98-107)
[2018-07-19] MEDS: LISINOPRIL 10MG TABLET PO SCH (08:30)
[2018-07-19] MEDS: CLOPIDOGREL 75MG TABLET PO SCH (08:30)
[2018-07-19] MEDS: HEPARIN 5000 UNITS/ML VIAL SUBCUT SCH ×2 (08:31→20:37)
[2018-07-19] MEDS ORDERED: DIPHENHYDRAMINE 50MG/ML VIAL IV PRN (17:45)
[2018-07-19] MEDS ORDERED: MAGNESIUM/ALUMINUM HYDROXIDE/SIMETHICONE 30ML UDC PO PRN (17:45)
[2018-07-19] MEDS ORDERED: HYDRALAZINE 20MG/ML VIAL IV PRN (17:45)
[2018-07-19] MEDS ORDERED: DOCUSATE SODIUM 100MG CAPSULE PO PRN (17:45)
[2018-07-19] MEDS ORDERED: HYDROCODONE/ACETAMINOPHEN 5/325MG TABLET PO PRN (17:45)
[2018-07-19] MEDS ORDERED: ONDANSETRON 4MG ODT PO PRN (17:45)
[2018-07-19] MEDS: ATORVASTATIN CALCIUM 10MG TABLET PO SCH (20:30)
[2018-07-20] VITALS: BP 142/76
[2018-07-20 04:00] VITALS: BP 138/64
[2018-07-20 06:56] LABS: HEMATOCRIT 34.2 % (42.0-52.0); HEMOGLOBIN 11.7 g/dL (14.0-18.0); MEAN CORPUSCULAR HEMOGLOBIN 31.9 pg (28.0-32.0); MEAN CORPUSCULAR VOLUME 93.1 fL (80.0-94.0); PLATELET 235 x1000/uL (130-400); RED BLOOD CELL COUNT 3.67 mill/uL (4.7-6.1); RED CELL DISTRIBUTION WIDTH 13.8 % (11.6-14.6)
[2018-07-20 07:13] LABS: CHLORIDE 105 mEq/L (98-107)
[2018-07-20 08:00] VITALS: BP 137/78
[2018-07-20] MEDS ORDERED: AMLODIPINE 5MG TABLET PO SCH (09:00)
[2018-07-20] MEDS: CLOPIDOGREL 75MG TABLET PO SCH (09:24)
[2018-07-20] MEDS: HEPARIN 5000 UNITS/ML VIAL SUBCUT SCH (09:26)
[2018-07-20 12:00] VITALS: BP 127/73
[2018-07-20 16:15] VITALS: BP 147/87
[2018-07-20 16:27] VITALS: BP 147/87
== END 2018-07-20 16:45 | DRG 74 ==
LOC: ER 18:10 → 5WST 20:01 → EDBEDREQ 20:05 → ENRESERV 21:43
PROVIDERS: ADMIT Internal Medicine; ATTEND Internal Medicine
DX: G90.8 Other disorders of autonomic nervous system (principal); I69.351 Hemiplegia and hemiparesis following cerebral infarction affecting right dominant side; D64.9 Anemia, unspecified; E78.5 Hyperlipidemia, unspecified; I10 Essential (primary) hypertension; R29.6 Repeated falls; R00.1 Bradycardia, unspecified; Z59.0 Homelessness; Z91.19 Patient's noncompliance with other medical treatment and regimen; Z79.899 Other long term (current) drug therapy
CPT/HCPCS: 36415; 70450; 71045; 80048; 80053; 80061; 80305; 81003; 82533; 84443; 84484; 85025; 85027; 87040; 93005; 93880; 96360; 96361; 97116; 97162; 99285; J1644; J7030